=== PATIENT | female | born 1970 | race Caucasian/White ===

== ENCOUNTER 2024-02-28 13:54 | Emergency (ER) | payer SELFPAY ==
[2024-02-28 13:54] VITALS: BP 121/97; PULSE 111; RESP 16; TEMP 37; O2SAT 98; BMI 24.1
--- NOTE | 2024-02-28 13:59 | ED_ITS ---
HPI - Nausea/Vomiting/Diarrhea 2 General: Chief complaint: Allergic Reaction Stated complaint: Allergic reaction Time Seen by Provider: 02/28/24 13:54 Source: patient and EMS Mode of arrival: EMS Limitations: no limitations History of Present Illness: 53-year-old female states she is started on Bactrim this morning for an ingrown hair on her groin. She states she taken 1 dose and she got ill states she has had multiple episodes of vomiting has received Zofran Benadryl and Phenergan and route has some improvement states she still feels nauseous states she had vomited multiple times denies any pain anywhere denies any fevers currently. Associated nausea: Yes Associated symtoms: Reports nausea; Denies chest pain, dysuria or headache(s) Related Data Home Medications Medication Instructions Recorded Confirmed citalopram 40 mg tablet 40 mg PO DAILY 02/28/24 02/28/24 Previous Rx's Medication Instructions Recorded ondansetron 4 mg disintegrating 4 mg PO Q6H PRN nausea and 02/28/24 tablet vomiting #14 tabs sulfamethoxazole 800 1 tab PO BID 7 days #14 tabs 02/28/24 mg-trimethoprim 160 mg tablet (Bactrim DS) Allergies Allergy/AdvReac Type Severity Reaction Status Date / Time morphine Allergy Unknown Verified 02/28/24 10:16 vancomycin Allergy ALGY-Hives Verified 02/28/24 10:16 Review of Systems 2 Const: Denies: fever(s), chills, body aches or change in appetite ENMT: Denies: throat pain or dental pain Card: Denies: chest pain Resp: Denies: dyspnea GI: Reports: nausea and vomiting; Denies: abdominal pain or diarrhea : Denies: dysuria Musc: Denies: neck pain or back pain Skin/Breast: Denies: rash Neuro: Denies: headache(s) PFSH ED 2 PFSH: Social History Smoking and tobacco/nicotine status: never used tobacco/nicotine Physical Exam 2 Const: COMMON NORMALS: no acute distress, patient oriented x3 and healthy appearing HENMT: COMMON NORMALS: normocephalic and atraumatic HEAD & SCALP: n ormocephalic and atraumatic Neck/C-Spine: COMMON NORMALS: full ROM and supple Chest: COMMONS NORMALS: normal inspection of the chest Resp: COMMON NORMALS: normal respiratory effort, No retractions, No use of accessory muscles and clear to auscultation bilaterally AUSCULTATION: clear to auscultation bilaterally Cardio: COMMON NORMALS: regular rate, regular rhythm and No murmurs present (Cardio) RATE: regular rate RHYTHM: regular rhythm GI: COMMON NORMALS: Normal to inspection, nondistended, normoactive bowel sounds present, Soft to palpation, non-tender and no masses PALPATION: Yes Soft to palpation Extremity: COMMON NORMALS: normal to inspection and full ROM Neuro: COMMON NORMALS: patient oriented x3, moves all extremities and no focal motor deficits Psych: COMMON NORMALS: mental status grossly normal, Normal thought process present and cooperative THOUGHT PROCESS: Normal thought process present Skin: COMMON NORMALS: no rashes or lesions noted and no wounds GENERAL SKIN EXAM: no rashes or lesions noted Course 2 Vital Signs: Vital signs: Vital Signs Temperature 98.6 F 02/28/24 13:54 Pulse Rate 92 02/28/24 16:38 Respiratory Rate 16 02/28/24 13:54 Blood Pressure 107/62 02/28/24 16:38 Pulse Oximetry 100 02/28/24 16:38 Oxygen Delivery Me thod Room Air 02/28/24 13:54 MDM - Nausea/Vomiting/Diarrhea Medical Decision Making Patient presents with vomiting after taking Bactrim she feels much improved here after IV meds and fluids CT abdomen showed no acute abnormalities I did inspect the area to her left groin has did palpate a small knot no erythema no signs of any abscess at this time will prescribe her Zofran she is follow-up return if worsening Medical Records I reviewed the patient's medical records. Lab Data I reviewed the patient's lab results. 02/28/24 14:22 02/28/24 14:22 Radiology Impressions Abdomen/Pelvis CT 02/28/24 14:37 IMPRESSION: 1. Two left ovarian cysts, the largest measuring 3.5 cm in maximum dimension. 2. Colonic ileus and/or pending diarrhea suspected. 3. Mild elevation of the right hemidiaphragm. 4. Mild left inguinal lymphadenopathy. 5. No other acute abdominal or pelvic findings. 6. Additional details as above. Laboratory Results WBC 14.12 10^3/uL (3.29-11.43) H 02/28/24 14:22 RBC 4.16 10^6/uL (3.85-5.65) 02/28/24 14:22 Hgb 13.40 g/dL (11.27-16.99) 02/28/24 14:22 Hct 39.5 % (36-47) 02/28/24 14:22 MCV 95.0 fl (85-98) 02/28/24 14:22 MCH 32.2 pg (27-33) 02/28/24 14:22 MCHC 33.9 g/dL (30-55) 02/28/24 14:22 RDW 11.9 % (12.1-15.1) L 02/28/24 14:22 Plt Count 258 10^3/cmm (157-399) 02/28/24 14:22 MPV 9.3 fL (7.4-10.4) 02/28/24 14:22 Neut % (Auto) 87.7 % 02/28/24 14:22 Lymph % (Auto) 9.0 % 02/28/24 14:22 [place] % (Auto) 2.8 % 02/28/24 14:22 Eos % (Auto) 0.1 % 02/28/24 14:22 Baso % (Auto) 0.1 % 02/28/24 14:22 Neut # (Auto) 12.37 10^3/uL (1.8-7.7) H 02/28/24 14:22 Lymph # (Auto) 1.3 10^3/uL (0.8-4.8) 02/28/24 14:22 [place] # (Auto) 0.4 10^3/uL (0.2-0.9) 02/28/24 14:22 Eos # (Auto) 0.0 10^3/uL (0.0-0.8) 02/28/24 14:22 Baso # (Auto) 0.0 10^3/uL (0.0-0.1) 02/28/24 14:22 Nucleated RBC % (auto) 0 % 02/28/24 14:22 Nucleated RBCs # 0.0 /100WBC 02/28/24 14:22 Sodium 135 mmol/L (136-145) L 02/28/24 14:22 Potassium 3.1 mmol/L (3.5-5.1) L 02/28/24 14:22 Chloride 100 mmol/L (98-107) 02/28/24 14:22 Carbon Dioxide 23 mmol/L (22-29) 02/28/24 14:22 Anion Gap 15.1 (5-19) 02/28/24 14:22 BUN 13 mg/dL (6-20) 02/28/24 14:22 Creatinine 0.7 mg/dL (0.5-0.9) 02/28/24 14:22 GFR Calculation 87.2 mL/min (90-130) L 02/28/24 14:22 Glucose 144 mg/dL (65-115) H 02/28/24 14:22 Calculated Osmolality 283 mOsm/kg (285-295) L 02/28/24 14:22 Calcium 8.7 mg/dL (8.5-10.5) 02/28/24 14:22 Total Bilirubin 0.3 mg/dL (0.15-1.2) 02/28/24 14:22 AST 18 U/L (0-32) 02/28/24 14:22 ALT 14 U/L (0-33) 02/28/24 14:22 Alkaline Phosphatase 65 U/L (35-105) 02/28/24 14:22 Total Protein 6.9 g/dL (6.6-8.7) 02/28/24 14:22 Albumin 4.0 g/dL (3.5-5.2) 02/28/24 14:22 Globulin 2.9 g/dL (1.3-4.6) 02/28/24 14:22 Lipase 24 U/L (13-60) 02/28/24 14:22 All radiology interpretation(s) finalized by discharge Discharge Plan Discharge Patient Disposition: Home Clinical Impression: Vomiting Qualifiers: Vomiting type: unspecified Nausea presence: with nausea Qualified Code(s): R 11.2 - Nausea with vomiting, unspecified Condition: Stable Prescriptions: New ondansetron 4 mg tablet,disintegrating 4 mg PO Q6H PRN (Reason: nausea and vomiting) Qty: 14 0RF No Action citalopram 40 mg tablet 40 mg PO DAILY sulfamethoxazole-trimethoprim [Bactrim DS] 800-160 mg tablet 1 tab PO BID 7 Days Qty: 14 0RF Discharge Orders: Discharge ED (Routine); Ordered 02/28/24 Ordered By: Samuel Faustin Discharge Diet: Advance as tolerated Discharge Activity: Resume usual activity Patient Instructions: Acute Nausea and Vomiting (ED) Coding Level of Care Code ED Bulk [employer] Operator for Pepe Eller
[2024-02-28] MEDS: sodium chloride 0.9% 1,000 ML 999 ML IV (14:10)
[2024-02-28 14:32] LABS: Basophils % 0.1 %; Eosinophils % 0.1 %; Hematocrit 39.5 % (36-47); Lymphocytes # 1.3 10^3/uL (0.8-4.8); Mean Corpuscular HGB Conc 33.9 g/dL (30-55); Mean Corpuscular Hemoglobin 32.2 pg (27-33); Mean Platelet Volume 9.3 fL (7.4-10.4); Monocytes # 0.4 10^3/uL (0.2-0.9); Monocytes % 2.8 %; Neutrophils # 12.37 10^3/uL (1.8-7.7); Neutrophils % 87.7 %; Nucleated Red Blood Cells % 0 %; Platelet Count 258 10^3/cmm (157-399); Red Blood Count 4.16 10^6/uL (3.85-5.65); Red Cell Distribution Width 11.9 % (12.1-15.1); White Blood Count 14.12 10^3/uL (3.29-11.43)
--- NOTE | 2024-02-28 14:37 | CTR_ITS ---
PROCEDURE INFORMATION: Exam: CT Abdomen And Pelvis With Contrast Exam date and time: 02/28/2024 3:37 PM Age: 53 years old Clinical indication: Abdominal pain; Additional info: Abd pain TECHNIQUE: Imaging protocol: Computed tomography of the abdomen and pelvis with contrast. Radiation optimization: All CT scans at this facility use at least one of these dose optimization techniques: automated exposure control; mA and/or kV adjustment per patient size (includes targeted exams where dose is matched to clinical indication); or iterative reconstruction. Contrast material: OMNI 350; Contrast volume: 100 ml; Contrast route: INTRAVENOUS (IV); COMPARISON: No relevant prior studies available. RADIATION DOSE METRICS: Total DLP (mGy-cm): 576 FINDINGS: Lungs: Tiny amounts of bilateral dependent subsegmental atelectasis. Otherwise, unremarkable. Diaphragm: Mild elevation of the right hemidiaphragm. Liver: Normal. No mass. Gallbladder and biliary ducts: Cholecystectomy. Unremarkable post cholecystectomy bile ducts. Pancreas: Normal. No ductal dilation. Spleen: Normal. No splenomegaly. Adrenal glands: Normal. No mass. Kidneys and ureters: Normal. No hydronephrosis. Stomach and bowel: Fluid throughout the colon with air-fluid levels. The colon is not thick walled. This could be colonic ileus and/or pending diarrhea. Otherwise, unremarkable. Appendix: The appendix is not clearly identified, but there is no obvious pericecal inflammation. Intraperitoneal space: Unremarkable. No free air. No significant fluid collection. Vasculature: Tiny amount arterial calcification. Otherwise, unremarkable. Lymph nodes: Mild left inguinal lymphadenopathy. No other lymphadenopathy. Urinary bladder: Unremarkable as visualized. Reproductive: Hysterectomy. Two left ovarian cysts, the largest measuring 3.5 cm in maximum dimension. Otherwise, unremarkable. Bones/joints: Very mild scoliosis. Minimal multilevel spondylosis. Otherwise, unremarkable. Soft tissues: Bilateral breast implants are partially in the field of view, and appear intact as visualized. Otherwise, unremarkable visualized body wall. Otherwise, unremarkable soft tissues. CT/CT abdomen pelvis w con* [id number] IMPRESSION: 1. Two left ovarian cysts, the largest measuring 3.5 cm in maximum dimension. 2. Colonic ileus and/or pending diarrhea suspected. 3. Mild elevation of the right hemidiaphragm. 4. Mild left inguinal lymphadenopathy. 5. No other acute abdominal or pelvic findings. 6. Additional details as above.
[2024-02-28 14:47] LABS: Alanine Aminotransferase 14 U/L (0-33); Alkaline Phosphatase 65 U/L (35-105); Anion Gap 15.1 (5-19); Aspartate Amino Transferase 18 U/L (0-32); Blood Urea Nitrogen 13 mg/dL (6-20); Calcium 8.7 mg/dL (8.5-10.5); Carbon Dioxide 23 mmol/L (22-29); Chloride 100 mmol/L (98-107); Creatinine Clr Calc Pharmacy 87.7612; Globulin 2.9 g/dL (1.3-4.6); Glomerular Filtration Rate 87.2 mL/min (90-130); Glucose 144 mg/dL (65-115); Lipase 24 U/L (13-60); Osmolality Calculated 283 mOsm/kg (285-295); Potassium 3.1 mmol/L (3.5-5.1); Sodium 135 mmol/L (136-145); Total Bilirubin 0.3 mg/dL (0.15-1.2); Total Protein 6.9 g/dL (6.6-8.7)
[2024-02-28] MEDS: metoclopramide 5 mg/mL SDV 2 mL IVP (14:54)
[2024-02-28] MEDS: diphenhydrAMINE 50 mg/mL SDV 1mL 25 MG IVP (14:57)
[2024-02-28] MEDS: iohexol 350 mg/mL 500 mL Btl (per mL) IV (15:44)
[2024-02-28 16:38] VITALS: BP 107/62; PULSE 92; O2SAT 100
== END 2024-02-28 16:41 | disposition home or self-care (01) ==
PROVIDERS: Emergency Provider Emergency Medicine
DX: R11.2 Nausea with vomiting, unspecified (principal)
CPT/HCPCS: 36415; 74177; 80053; 83690; 85025; 96374; 96375; 99285; J1200; J2765; J7030